=== PATIENT | female | born 2005 | race Caucasian/White ===

== ENCOUNTER 2025-07-06 00:15 | Emergency (ER) | payer OTHER ==
[~2025-07-06] VITALS: Ht 162.6 cm; Wt 74.0 kg
[2025-07-06 00:24] VITALS: O2SAT 100
[2025-07-06 00:52] LABS: BASOPHILS % 1.1 % (0.0-2.0); EOSINOPHILS % 9.8 % (0.0-5.0); HEMATOCRIT. 36.7 % (36.0-48.0); HEMOGLOBIN. 12.1 g/dL (12.0-16.0); LYMPHOCYTES % 30.0 % (20.0-50.0); MEAN PLATELET VOLUME 8.8 fl (7.4-10.4); MONOCYTES % 6.4 % (2.0-8.0); NEUTROPHILS % 52.7 % (40.0-76.0); PLATELET 323 x1000/uL (130-400); RED BLOOD CELL COUNT 4.66 mill/uL (4.2-5.4); RED CELL DISTRIBUTION WIDTH 19.2 % (11.6-14.6)
[2025-07-06 01:01] LABS: CREATININE 0.8 mg/dL (0.6-1.0); UREA NITROGEN BLOOD 8 mg/dL (9-23)
[2025-07-06 01:06] LABS: CLARITY URINE CLEAR (CLEAR); COLOR URINE YELLOW (YELLOW); GLUCOSE URINE NEGATIVE (NEGATIVE); KETONES URINE NEGATIVE (NEGATIVE); NITRITE URINE NEGATIVE (NEGATIVE); OCCULT BLOOD URINE NEGATIVE (NEGATIVE); PH URINE 7.5 (4.5-8.0); PROTEIN URINE NEGATIVE (NEGATIVE); SPECIFIC GRAVITY URINE 1.016 (1.005-1.030)
[2025-07-06 01:07] LABS: LEUKOCYTE ESTERASE URINE NEGATIVE (NEGATIVE); UROBILINOGEN URINE 0.2 E.U./dL (0.2-1.0)
[2025-07-06] MEDS: ONDANSETRON 4MG ODT PO ONE (01:36)
[2025-07-06] MEDS: OXYCODONE HCL/ACETAMINOPHEN 5/325MG TABLET PO ONE (01:36)
[2025-07-06 02:21] LABS: CREATININE 0.8 mg/dL (0.6-1.0); UREA NITROGEN BLOOD 8 mg/dL (9-23)
[2025-07-06 02:23] LABS: ASPARTATE AMINOTRANSFERASE 19 IU/L (<34); BILIRUBIN DIRECT < 0.1 mg/dL (<=3.0); BILIRUBIN TOTAL 0.2 mg/dL (0.1-1.0); PROTEIN TOTAL 6.8 g/dL (6.0-8.3)
[2025-07-06 02:26] LABS: HCG SCREEN NEGATIVE
[2025-07-06] MEDS ORDERED: ONDA-239 PO (02:28)
[2025-07-06 03:16] VITALS: BP 97/65; PULSE 68; RESP 16; TEMP 36.6; O2SAT 100
== END 2025-07-06 03:25 | disposition home or self-care (01) ==
LOC: ER 00:15
DX: R10.30 Lower abdominal pain, unspecified (principal); R19.7 Diarrhea, unspecified; R11.10 Vomiting, unspecified; Z90.49 Acquired absence of other specified parts of digestive tract
CPT/HCPCS: 99284; 74176; 80076; 80048; 81003; 81025; 84703; 83690; 85025; 36415; Q0162